=== PATIENT | male | born 1995 | race Caucasian/White ===

== ENCOUNTER 2016-12-06 15:11 | Emergency (ER) | payer SELFPAY ==
--- NOTE | 2016-12-06 17:02 | EDM.PDOC ---
ED HPI GENERAL MEDICAL PROBLEM - General Chief Complaint: ENT Problem Stated Complaint: COUGH/SORE THROAT Time Seen by Provider: 12/06/16 15:35 Source of Information: Reports: Patient History Limitations: Reports: No Limitations - History of Present Illness INITIAL COMMENTS - FREE TEXT/NARRATIVE: Patient is a 21-year-old male who presents to the ED complaining of sore throat , runny nose, postnasal drip, mild body aches, and nonproductive cough. Symptoms started approximately 5-7 days ago with runny nose and postnasal drip that have progressively worsened since onset. Patient has not been sleeping well secondary to the cough. Cough is nonproductive. No documented fever. States girlfriend had similar symptoms prior to onset. States they are not ready for the cold. They are from [place]. Denies any chest pain, ear pain, shows breath, abdominal pain, rash, or any additional complaint. - Related Data Allergies Allergy/AdvReac Type Severity Reaction Status Date / Time No Known Allergies Allergy Verified 12/06/16 15:23 Home Meds: Home Meds Benzonatate [Tessalon Perles] 100 mg PO TID PRN #21 cap 12/06/16 [Rx] Past Medical History - Past Health History Medical/Surgical History: Denies Medical/Surgical History Social & Family History - Tobacco Use Smoking Status *Q: Current Every Day Smoker Years of Tobacco use: 2 Packs/Tins Daily: 0.2 - Caffeine Use Caffeine Use: Reports: Coffee - Recreational Drug Use Recreational Drug Use: No ED ROS ENT - Review of Systems Review Of Systems: ROS reveals no pertinent complaints other than HPI. ED EXAM, ENT - Physical Exam Exam: See Below Exam Limited By: No Limitations General Appearance: Alert, WD/WN, No Apparent Distress Ears: Normal External Exam, Normal Canal, Hearing Grossly Normal, Normal TMs Nose: Clear Rhinorrhea, Nasal Discharge, Nasal Swelling, Injected Turbinates Mouth/Throat: Normal Inspection, Pharyngeal Erythema, Throat Swelling, Tonsillar Erythema, Tonsillar Swelling. No: Tonsillar Exudates, Uvular Deviation Head: Atraumatic, Normocephalic Neck: Normal Inspection, Supple, Non-Tender, Full Range of Motion, Lymphadenopathy (L), Lymphadenopathy (R) Respiratory/Chest: No Respiratory Distress, Lungs Clear, Normal Breath Sounds, No Accessory Muscle Use, Chest Non-Tender Cardiovascular: Normal Peripheral Pulses, Regular Rate, Rhythm Neurological: Alert, Oriented, CN II-XII Intact, Normal Cognition, No Motor/ Sensory Deficits Psychiatric: Normal Affect, Normal Mood Skin: Warm, Dry, Intact, Normal Color, No Rash Course - Vital Signs Last Recorded V/S: Last Vital Signs Temp 97.4 F 12/06/16 15:21 Pulse 89 12/06/16 15:21 Resp 16 12/06/16 15:21 BP 138/85 12/06/16 15:21 Pulse Ox 98 12/06/16 15:21 - Orders/Labs/Meds Orders: Active Orders 24 hr Category Date Time Status CXR [Chest 2V] [CR] Stat Exams 12/06/16 15:56 Taken CULTURE STREP A CONFIRMATION [] Stat Lab 12/06/16 16:17 Results STREP SCRN A RAPID W CULT CONF [RM] Stat Lab 12/06/16 16:17 Results - Re-Assessments/Exams Free Text/Narrative Re-Assessment/Exam: Chest x-ray, influenza screen, and strep screen were obtained. Chest x-ray normal. Strep and influenza negative. Will discharge patient home with instructions as documented Departure - Departure Time of Disposition: 17:53 Disposition: Home, Self-Care 01 Condition: Good Clinical Impression: URI with cough and congestion - Discharge Information Prescriptions: Benzonatate [Tessalon Perles] 100 mg PO TID PRN #21 cap PRN Reason: Cough Instructions: Upper Respiratory Infection, Adult Referrals: PCP,None [Primary Care Provider] - Forms: ED Department Discharge, ED Return to Work/School Form Additional Instructions: As discussed you have a viral upper respiratory infection that will run its course and improve with time. Treatment is symptomatic care including Flonase 2 sprays each nare twice a day for the duration of symptoms. Tylenol and Motrin as needed for headache and any discomfort. Push the fluids, eat a balanced diet , ensure adequate rest. Take the Tessalon Perles as prescribed for cough. Follow -up with a PCP of your choice at [facility] if symptoms have not improved over the next 10 to 14 days. Return to the E.D. for any new or worsening symptoms. - My Orders Last 24 Hours: My Active Orders 12/06/16 15:56 CXR [Chest 2V] [CR] Stat 12/06/16 16:17 CULTURE STREP A CONFIRMATION [RM] Stat STREP SCRN A RAPID W CULT CONF [RM] Stat - Assessment/Plan Last 24 Hours: My Active Orders 12/06/16 15:56 CXR [Chest 2V] [CR] Stat 12/06/16 16:17 CULTURE STREP A CONFIRMATION [RM] Stat STREP SCRN A RAPID W CULT CONF [RM] Stat
--- NOTE | 2016-12-07 08:50 | CR ---
Chest: Two views of the chest were obtained. Comparison: No prior chest x-ray. Heart size and mediastinum are within normal limits. Lungs are clear. Bony structures are unremarkable for the patient's age. Impression: 1. Nothing acute is identified on two-view chest x-ray. Diagnostic code #1
== END 2016-12-06 18:06 | disposition home or self-care (01) ==
LOC: JD.ED 15:11
DX: J06.9 Acute upper respiratory infection, unspecified (principal); F17.210 Nicotine dependence, cigarettes, uncomplicated
CPT/HCPCS: 71020; 71020-26; 87081; 87430; 87804; 99283; 99284